=== PATIENT | female | born 1945 | race Caucasian/White ===

== ENCOUNTER 2021-08-18 06:24 | Day surgery (SDC) | payer MEDICARE ==
[2021-08-18] VITALS (11 sets, daily range): BP systolic 155–193; BP diastolic 59–79
[~2021-08-18] VITALS: Ht 152.4 cm; Wt 92.4 kg
[~2021-08-18 06:24] MED LIST: ARIP10TA15 PO; ASPI-611 PO; ATOR20TA PO; CALC-793 PO; CYAN500L PO; DILT240T10 PO; LACT1CAP65 PO; LAMO200T51 PO; MAGN400C PO; METO-539 PO; OMEG1CAP21 PO; OSC500T PO; RESV1CAP PO; VENL75CA55 PO
[2021-08-18] MEDS ORDERED: diphenhydrAMINE 25mg capsule PO PRN (07:20)
[2021-08-18] MEDS ORDERED: LORazepam 0.5 MG tablet PO PRN (07:20)
[2021-08-18] MEDS ORDERED: normal saline 1,000 ML IV SCH (07:20)
[2021-08-18] MEDS ORDERED: DOXE25CA3 PO (07:30)
[2021-08-18] MEDS ORDERED: OXYB-58 PO (07:31)
[2021-08-18] MEDS ORDERED: LAMO100T PO (07:31)
[2021-08-18] MEDS ORDERED: HYDR12.55 (07:32)
[2021-08-18] MEDS ORDERED: MELO-102 PO (07:34)
[2021-08-18 07:50] LABS: BASOPHILS # (AUTO) 0.1 X10'3 (0-0.2); BASOPHILS % (AUTO) 0.9 % (0-1); EOSINOPHILS # (AUTO) 1.4 X10'3 (0-0.9); EOSINOPHILS % (AUTO) 13.7 % (0-6); HEMATOCRIT 36.8 % (35.0-45.0); HEMOGLOBIN 12.3 g/dl (12.0-16.0); LYMPHOCYTES # (AUTO) 1.8 X10'3 (1.1-4.8); LYMPHOCYTES % (AUTO) 17.2 % (21-51); MEAN CORPUSCULAR HGB CONC 33.5 g/dL (33.0-36.5); MEAN CORPUSCULAR VOLUME 92.4 FL (78-98); MEAN PLATELET VOLUME 7.3 FL (7.4-10.4); MONOCYTES # (AUTO) 0.7 X10'3 (0-0.9); MONOCYTES % (AUTO) 7.2 % (2-12); NEUTROPHILS # (AUTO) 6.3 X10'3 (1.8-7.7); PLATELET COUNT 347 X10'3 (140-440); RED BLOOD COUNT 3.98 X10'6 (4.20-5.60); RED CELL DISTRIBUTION WIDTH 15.6 % (11.5-14.5); WHITE BLOOD COUNT 10.3 X10'3 (4.5-11.0)
[2021-08-18] MEDS ORDERED: LIDOcaine/PRILOcaine 5gm cream TP ONE (07:55)
[2021-08-18 08:29] LABS: ALBUMIN 3.8 G/DL (3.4-5.0); ANION GAP 6 (8-16); BLOOD UREA NITROGEN 20 MG/DL (7-18); BUN/CREATININE RATIO 20.4 (6.6-38.0); CALCIUM 8.8 MG/DL (8.5-10.1); CHLORIDE 99 MMOL/L (99-107); CREATININE 0.98 MG/DL (0.40-0.90); GLUCOSE 94 MG/DL (70-104); POTASSIUM 3.9 MMOL/L (3.5-5.1); SODIUM 138 MMOL/L (135-145); TOTAL CARBON DIOXIDE 32.6 MMOL/L (24-32); eGFR 55 ML/MIN
[2021-08-18 08:33] LABS: APTT 33 SECONDS (22-32)
[2021-08-18] MEDS ORDERED: nitroGLYCERIN-Tridil 50MG/D5W 250 ML IV ONE (09:26)
[2021-08-18] MEDS ORDERED: verapamil 2.5 mg/ml inj IV ONE (09:26)
[2021-08-18] MEDS ORDERED: iohexol 350MG/ML 100ml bottle IV ONE (09:27)
[2021-08-18] MEDS ORDERED: midazolam 1 mg/ML 2ml injection ONE (09:27)
[2021-08-18] MEDS ORDERED: fentaNYL/PF 50MCG/1 ML 2ML syringe ONE (09:27)
[2021-08-18] MEDS ORDERED: heparin 1,000unit/ml 10ml vial 10 ML ONE (09:27)
[2021-08-18] MEDS ORDERED: iohexol 350 MG/ML 50ML vial IV ONE (09:27)
[2021-08-18] MEDS ORDERED: LIDOcaine 1% (10mg/ml)w/preservative injection 20ml MDV ONE (09:35)
[2021-08-18] MEDS ORDERED: hydrALAZINE 20mg/ml inj. IV ONE (10:34)
[2021-08-18 12:37] LABS: ISTAT Hct MIX 37 %PCV (35-48); ISTAT O2 SATURATION MIX VENOUS 66 % (60-80); ISTAT SOURCE BLNK
[2021-08-18 12:37] LABS: ISTAT Hct MIX 36 %PCV (35-48); ISTAT O2 SATURATION MIX VENOUS 87 % (60-80); ISTAT SOURCE BLNK
[2021-08-18] MEDS ORDERED: HYDROchlorothiazide 12.5mg capsule PO ONE (15:15)
[2021-08-18] MEDS ORDERED: metoprolol succinate 25mg (24-HOUR) SR. Tablet PO ONE (15:20)
== END 2021-08-18 17:00 | disposition home or self-care (01) ==
LOC: SSTAY O 06:24
PROVIDERS: ATTEND Internal Medicine Cardiovascular Disease
DX: R94.39 Abnormal result of other cardiovascular function study (principal); R06.02 Shortness of breath; R53.83 Other fatigue; I25.10 Atherosclerotic heart disease of native coronary artery without angina pectoris; G47.30 Sleep apnea, unspecified; E78.5 Hyperlipidemia, unspecified; I10 Essential (primary) hypertension; E66.3 Overweight; Z68.39 Body mass index [BMI] 39.0-39.9, adult; Z79.899 Other long term (current) drug therapy; Z85.828 Personal history of other malignant neoplasm of skin; Z90.49 Acquired absence of other specified parts of digestive tract; Z98.890 Other specified postprocedural states; Z90.710 Acquired absence of both cervix and uterus; Z82.49 Family history of ischemic heart disease and other diseases of the circulatory system
CPT/HCPCS: 36415; 76937; 80048; 82803; 85014; 85025; 85610; 85730; 93005; 93460; 99152; 99153; C1751; C1769; C1894; J0360; J1644; J2250; J3010; J3490; J7030; Q0163; Q9967; A4620; A5120; A6258

== ENCOUNTER → 2022-09-21 | Outpatient (CLI) | payer MEDICARE ==
[~2022-09-21] MED LIST changes: -ARIP10TA15 PO; +DOXE25CA3 PO; +HYDR12.55; +LAMO100T PO; -LAMO200T51 PO; +MELO-102 PO; +OXYB-58 PO
== END | disposition home or self-care (01) ==
LOC: CARD DIAG 12:03
PROVIDERS: ATTEND Internal Medicine Cardiovascular Disease
DX: I08.8 Other rheumatic multiple valve diseases (principal); I25.10 Atherosclerotic heart disease of native coronary artery without angina pectoris
CPT/HCPCS: 93306